=== PATIENT | female | born 1970 | race Caucasian/White ===

== ENCOUNTER → 2016-08-12 | Outpatient (CLI) | payer OTHER ==
--- NOTE | 2016-08-12 08:59 | MM ---
Reason for exam: clinical finding. Last mammogram was performed 11 months ago. History: Took hormonal contraceptives for 7 years beginning at age 16. Physical Findings: Nurse Summary: 0.5cm nodule in the left breast at 12:30 (nurse kristy). MG Diagnostic Mammo w CAD NAILA Bilateral CC and MLO view(s) were taken. Prior study comparison: September 05, 2015, bilateral MG screening mammo w CAD. November 28, 2012, mammogram, performed at [facility]. November 21, 2012, mammogram, performed at [facility]. The breast tissue is heterogeneously dense. This may lower the sensitivity of mammography. Previous mammotome biopsy in the right breast. There is no discrete abnormality. These results were verbally communicated with the patient and result sheet given to the patient on 08/12/16. ASSESSMENT: Benign, BI-RAD 2 RECOMMENDATION: Routine screening mammogram of both breasts in 1 year. Manage patient on a clinical basis with regard to left palpable.
--- NOTE | 2016-08-12 09:01 | USB ---
Reason for exam: clinical finding. History: Took hormonal contraceptives for 7 years beginning at age 16. US Breast LT Left breast ultrasound includes all four quadrants, the retroareolar region and axilla. Finding demonstrate a 0.26 x 0.27 x 0.35cm lesion too small to characterize at 4 o'clock and a 0.33 x 0.18 x 0.31cm lesion too small to characterize at 4 o'clock. These results were verbally communicated with the patient and result sheet given to the patient on 08/12/16. ASSESSMENT: Benign, BI-RAD 2 RECOMMENDATION: Routine screening mammogram of both breasts in 1 year. Manage patient on a clinical basis with regard to left palpable.
== END | disposition home or self-care (01) ==
LOC: RADMAMWWP 07:31
PROVIDERS: ATTEND Family Medicine
DX: N63 Unspecified lump in breast (principal)
CPT/HCPCS: 76641; G0204

== ENCOUNTER → 2017-03-07 | Outpatient (CLI) | payer OTHER ==
--- NOTE | 2017-03-07 07:52 | US ---
EXAMINATION TYPE: US gallbladder DATE OF EXAM: 03/07/2017 COMPARISON: NONE CLINICAL HISTORY: 46-year-old female with pain, K81.9 Cholecystitis. Technique: Multiple sonographic images of the right upper quadrant are obtained. FINDINGS: FACS TEACHER NOTES: Morbidly obese patient with extensive overlying bowel gas, limited exam. Liver Length: 14.6 cm Gallbladder Wall: 0.2 cm CBD: 0.3 cm Right Kidney: 9.0 x 3.9 x 4.2 cm Pancreas: Visualized pancreatic neck and portions of the pancreatic body show no gross abnormality. R emainder is suboptimally visualized due to shadowing from bowel gas. Liver: Appears hypoechoic. There is no classic starry salome appearance of hepatitis. Gallbladder: No abnormal gallbladder distention, wall thickening, pericholecystic fluid, or shadowing calculi. There is some possible sludge, due to morbid obesity difficult to determine for certain. Evidence for sonographic Lim's sign: No CBD: wnl Right Kidney: No hydronephrosis. IMPRESSION: 1. Technically limited examination due to large body habitus. 2. Possible gallbladder sludge. Otherwise, no cholelithiasis or ancillary findings of acute cholecyst itis. 3. Hypoechoic appearance to the liver may be on technical basis. Correlate to exclude hepatitis.
== END | disposition home or self-care (01) ==
LOC: RADUSWWP 06:49
PROVIDERS: ATTEND Family Medicine
DX: K81.9 Cholecystitis, unspecified (principal)
CPT/HCPCS: 76705

== ENCOUNTER 2017-04-07 11:02 | Day surgery (SDC) | payer OTHER ==
[2017-04-04 10:00] VITALS: BMI 45.0
[~2017-04-07 11:02] MED LIST: LACTATED RINGERS 1,000 ML IV SCH
[2017-04-07 11:22] VITALS: TEMP 97.9
[2017-04-07] MEDS ORDERED: PROPOFOL 10 MG/ML 20 ML VIAL IV ONE (11:51)
--- NOTE | 2017-04-07 12:14 | P.PCN ---
Date of Procedure: 04/07/17 Preoperative Diagnosis: abdominal pain Postoperative Diagnosis: mild gastritis and duodenitits Anesthesia: MAC Surgeon: Handy Hernandez Pathology: other (gastric antrum and GE junction) Condition: stable Disposition: PACU Indications for Procedure: Patient has been experiencing upper abdominal pain Description of Procedure: Endoscope was advanced from oropharynx to esophagus under direct visualization. Down esophagus and into first and second portion of duodenum. Mild gastritis and duodenitits were noted. Gastric antral biopsy taken. Scope was retroflexed and no hiatal hernia was noted. GE junction biopsy was taken. No other abdormalities seen. Scope was withdrawn, patient tolerated procedure well. No apparent complications.
[2017-04-07 12:33] VITALS: BP 129/85; PULSE 80; RESP 18
== END 2017-04-07 13:04 | disposition home or self-care (01) ==
LOC: ORWHC2ENDO 11:02
PROVIDERS: ATTEND Student in an Organized Health Care Education/Training Program
DX: K29.50 Unspecified chronic gastritis without bleeding (principal); K21.9 Gastro-esophageal reflux disease without esophagitis; K29.80 Duodenitis without bleeding; R19.4 Change in bowel habit; E66.9 Obesity, unspecified; Z68.41 Body mass index [BMI] 40.0-44.9, adult; Z79.899 Other long term (current) drug therapy; Z88.0 Allergy status to penicillin
CPT/HCPCS: 43239; 81025; 88305; 88342; J2704

== ENCOUNTER → 2018-06-16 | Outpatient (CLI) | payer OTHER ==
--- NOTE | 2018-06-16 14:36 | CT ---
EXAMINATION TYPE: CT brain wo con DATE OF EXAM: 06/16/2018 COMPARISON: None INDICATION: right sided headaches and pain above eye, vision changes, no injury DLP: 1054.2 mGycm, Automated exposure control for dose reduction was used. CONTRAST: None CT of the brain is performed utilizing 3 mm thick sections through the posterior fossa and 3 mm thick sections through the remaining calvarium. Study is performed within 24 hours of arrival to the hosp ital. No abnormal hyperdensity is present to suggest an acute intracranial hemorrhage. No mass lesion is evident. No acute infarcts are evident. Ventricles and sulci are appropriate for the patient age. Paranasal sinuses and mastoid air cells within the umuat-cc-itya are clear. IMPRESSIONS: 1. Normal CT Brain
[2018-06-16 14:53] LABS: Basophils # (A) 0.1 k/uL (0-0.2); Basophils % (A) 1 %; Eosinophils # (A) 0.4 k/uL (0-0.7); Eosinophils % (A) 4 %; HCT 43.7 % (34.0-46.0); HGB 13.8 gm/dL (11.4-16.0); Lymphocytes # (A) 2.5 k/uL (1.0-4.8); Lymphocytes % (A) 22 %; MCH 30.2 pg (25.0-35.0); MCHC 31.6 g/dL (31.0-37.0); MCV 95.7 fL (80.0-100.0); Mean Platelet Volume 6.6; Monocytes # (A) 0.5 k/uL (0-1.0); Monocytes % (A) 4 %; Neutrophils # (A) 7.5 k/uL (1.3-7.7); Neutrophils % (A) 68 %; Platelet Count 277 k/uL (150-450); RBC 4.57 m/uL (3.80-5.40); RDW 12.8 % (11.5-15.5); WBC 11.1 k/uL (3.8-10.6)
[2018-06-16 15:07] LABS: Albumin 3.7 g/dL (3.5-5.0); Calcium 9.2 mg/dL (8.4-10.2); Potassium 4.6 mmol/L (3.5-5.1); Total Bilirubin 0.3 mg/dL (0.2-1.3); Total Protein 6.6 g/dL (6.3-8.2)
== END | disposition home or self-care (01) ==
LOC: RADCTMAIN 14:01
PROVIDERS: ATTEND Nurse Practitioner Family
DX: G44.52 New daily persistent headache (NDPH) (principal); R11.0 Nausea; H53.9 Unspecified visual disturbance; Z88.0 Allergy status to penicillin
CPT/HCPCS: 36415; 70450; 80053; 84443; 85025

== ENCOUNTER → 2018-10-31 | Outpatient (CLI) | payer OTHER ==
--- NOTE | 2018-10-31 12:16 | FL ---
EXAMINATION TYPE: FL barium swallow w video DATE OF EXAM: 10/31/2018 MODIFIED SWALLOW / DEGLUTITION STUDY CLINICAL HISTORY: Dysphagia. TECHNIQUE: Deglutition study is performed utilizing thin liquid barium, honey and nectar thick liqui d barium, barium thick pudding, and barium coated cracker. A total of 55 seconds of fluoroscopic time is utilized during procedure. 0 spot images are saved to PACS. COMPARISON: None. FINDINGS: The oral and pharyngeal phases show satisfactory initiation and propagation with all modali ties tested. Normal mastication is seen with solid modalities tested. There is no evidence of penet ration or aspiration with any modality tested. No significant pharyngeal residue was appreciated. IMPRESSION: Normal deglutition study. Please refer to speech therapist notes for further details if necessary.
== END | disposition home or self-care (01) ==
LOC: RADFLMAIN 11:36
PROVIDERS: ATTEND Otolaryngology
DX: R13.10 Dysphagia, unspecified (principal)
CPT/HCPCS: 74230

== ENCOUNTER → 2018-11-08 | Outpatient (CLI) | payer OTHER | LOC: CPPFTMAIN 10:00 | PROVIDERS: ATTEND Family Medicine | DX: J30.9 Allergic rhinitis, unspecified (principal); R05 Cough; Z88.0 Allergy status to penicillin | CPT/HCPCS: 94060; 94726; 94729 ==

== ENCOUNTER → 2018-11-30 | Outpatient (CLI) | payer OTHER ==
--- NOTE | 2018-12-01 11:31 | MM ---
Reason for exam: screening (asymptomatic). Last mammogram was performed 2 years and 4 months ago. History: Took hormonal contraceptives for 7 years beginning at age 16. Physical Findings: A clinical breast exam by your physician is recommended on an annual basis and results should be correlated with mammographic findings. MG 3D Screening Mammo W/Cad Bilateral CC and MLO view(s) were taken. Prior study comparison: August 12, 2016, bilateral MG diagnostic mammo w CAD NAILA. September 05, 2015, bilateral MG screening mammo w CAD. The breast tissue is heterogeneously dense. This may lower the sensitivity of mammography. There is chronic nodularity in the right breast. There is no discrete abnormality. ASSESSMENT: Negative, BI-RAD 1 RECOMMENDATION: Routine screening mammogram of both breasts in 1 year.
== END | disposition home or self-care (01) ==
LOC: RADMAMWWP 07:15
PROVIDERS: ATTEND Family Medicine
DX: Z12.31 Encounter for screening mammogram for malignant neoplasm of breast (principal)
CPT/HCPCS: 77063; 77067

== ENCOUNTER 2019-09-27 16:22 | Observation (INO) | payer OTHER ==
[2019-09-27] MEDS ORDERED: SODIUM CHLORIDE 0.9% 500 ML 500 ML IV STA (16:56)
[2019-09-27 17:02] LABS: Appearance,Urine Cloudy (Clear); Bilirubin,Urine Negative (Negative); Blood,Urine Negative (Negative); Color,Urine Yellow; Glucose,Urine (UA) Negative (Negative); Ketones,Urine 1+ (Negative); Leukocyte Esterase,Urine Moderate (Negative); Mucus,Urine Rare /hpf; Nitrite,Urine Negative (Negative); Protein,Urine Negative (Negative); RBC,Urine 3 /hpf (0-5); Specific Gravity,Urine 1.019 (1.001-1.035); Squamous Epithelial Cell,Urine 7 /hpf (0-4); Urobilinogen,Urine <2.0 mg/dL (<2.0); WBC,Urine 2 /hpf (0-5)
[2019-09-27 17:22] LABS: Basophils # (A) 0.1 k/uL (0-0.2); Basophils % (A) 1 %; Eosinophils # (A) 0.4 k/uL (0-0.7); Eosinophils % (A) 4 %; HGB 14.1 gm/dL (11.4-16.0); Lymphocytes # (A) 2.4 k/uL (1.0-4.8); Lymphocytes % (A) 21 %; MCH 31.5 pg (25.0-35.0); MCHC 33.5 g/dL (31.0-37.0); Mean Platelet Volume 7.8; Monocytes # (A) 0.6 k/uL (0-1.0); Monocytes % (A) 5 %; Neutrophils % (A) 69 %; Platelet Count 290 k/uL (150-450); RBC 4.47 m/uL (3.80-5.40); RDW 12.7 % (11.5-15.5); WBC 11.7 k/uL (3.8-10.6)
[2019-09-27 17:30] LABS: ALT 14 U/L (4-34); AST 18 U/L (14-36); African American GFR (CKD) >90 (>60 ml/min/1.73 sqM); Alkaline Phosphatase 77 U/L (38-126); Anion Gap 6 mmol/L; Blood Urea Nitrogen 12 mg/dL (7-17); Calcium 9.1 mg/dL (8.4-10.2); Carbon Dioxide 25 mmol/L (22-30); Chloride 104 mmol/L (98-107); Glucose 94 mg/dL (74-99); Non-African American GFR(CKD) 82 (>60 ml/min/1.73 sqM); Potassium 4.2 mmol/L (3.5-5.1); Sodium 135 mmol/L (137-145); Total Bilirubin 0.5 mg/dL (0.2-1.3); Total Protein 7.3 g/dL (6.3-8.2)
[2019-09-27] MEDS ORDERED: metroNIDAZOLE-NS PMX 500 MG in SALINE 1 100ML.BAG IVPB STA (18:01)
--- NOTE | 2019-09-27 18:05 | CT ---
EXAMINATION TYPE: CT abdomen pelvis w con DATE OF EXAM: 09/27/2019 HISTORY: Right lower quadrant pain. CT DLP: 2723.5mGycm Automated Exposure Control for Dose Reduction was Utilized. CONTRAST: CT scan of the abdomen and pelvis is performed with IV Contrast, patient injected with 100 mL of Isov ue 300. COMPARISON: None. FINDINGS: LUNG BASES: No significant abnormality is appreciated. LIVER/GB: Hepatic parenchyma is diffusely hypoattenuated in comparison to that of the spleen, most co mmonly seen in hepatic steatosis. This finding limits evaluation for hepatic masses. No gross evidenc e of hepatic mass is seen. No intrahepatic biliary ductal dilatation. Gallbladder is surgically absen t. PANCREAS: No significant abnormality is seen. SPLEEN: No significant abnormality is seen. Small splenule noted. ADRENALS: No nodule or thickening. KIDNEYS: Kidneys enhance and excrete symmetrically without hydronephrosis. Incidentally noted retroao rtic left renal vein. BOWEL: There is a small hiatal hernia. The appendix is enlarged measuring 9 mm on axial image 64. The re is mild surrounding inflammatory fat stranding. No dilated large or small bowel. UTERUS/ADNEXA: Tubal ligation clips are noted. LYMPH NODES: No greater than 1cm abdominal or pelvic lymph nodes are appreciated. OSSEOUS STRUCTURES: Minimal multilevel degenerative change of the spine. IMPRESSION: Acute uncomplicated appendicitis. Findings relayed to the ordering ER provider by Dr. Bita garcia on 09/27/2019 at 1801.
[2019-09-27] MEDS ORDERED: ONDANSETRON 4 MG/2 ML VIAL IVP PRN (19:11)
[2019-09-27] MEDS ORDERED: MORPHINE SULFATE 4 MG/ML SYRINGE IV PRN (19:11)
[2019-09-27] MEDS ORDERED: ACETAMINOPHEN TAB 325 MG TAB PO PRN (19:11)
[2019-09-27] MEDS ORDERED: NALOXONE 0.4 MG/ML 1 ML VIAL IV PRN (19:11)
--- NOTE | 2019-09-27 19:13 | ED ---
General Adult HPI - General Chief complaint: Abdominal Pain Stated complaint: Abd Pain Time Seen by Provider: 09/27/19 16:35 Source: patient, RN notes reviewed, old records reviewed Mode of arrival: ambulatory Limitations: no limitations - History of Present Illness Initial comments: 49-year-old female patient past history tubal ligation, cholecystectomy a pproximately 2 years ago presents ED for chief complaint right lower quadrant abdominal pain. Patient reports the pain began yesterday got worse today. Patient is poor that she had some bloating approximately a week ago. Denies any other complaints at this time. Systemic: Pt denies fatigue, fever/chills, rash. Pt denies weakness, night sweats, weight loss. Neuro: Pt denies headache, visual disturbances, syncope or pre-syncope. HEENT: Pt denies ocular discharge or irritation, otalgia, rhinorrhea, pharyngitis or notable lymphadenopathy. Cardiopulmonary: Pt denies chest pain, SOB, heart palpitations, dyspnea on exertion. Abdominal/GI: Pt denies n/v/d. : Pt denies dysuria, burning w/ urination, frequency/urgency. Denies new onset urinary or bowel incontinence. MSK: Pt denies myalgia, loss of strength or function in extremities. Neuro: Pt denies new onset weakness, paresthesias. - Related Data Home Medications Medication Instructions Recorded Confirmed Omeprazole [PriLOSEC] 20 mg PO AC-BRKFST 04/04/17 04/07/17 Allergies Allergy/AdvReac Type Severity Reaction Status Date / Time Penicillins Allergy Unknown Verified 09/27/19 16:27 Childhood Review of Systems ROS Statement: Those systems with pertinent positive or pertinent negative responses have been documented in the HPI. ROS Other: All systems not noted in ROS Statement are negative. Past Medical History Past Medical History: GERD/Reflux History of Any Multi-Drug Resistant Organisms: None Reported Past Surgical History: Tubal Ligation, Uterine Ablation Additional Past Surgical History / Comment(s): D & C Past Anesthesia/Blood Transfusion Reactions: No Reported Reaction Past Psychological History: No Psychological Hx Reported Smoking Status: Former smoker - Past Family History Mother Family Medical History: No Reported History General Exam - General Exam Comments Initial Comments: Constitutional: NAD, AOX3, Pt has pleasant affect. HEENT: NC/AT, trachea midline, neck supple, no lymphadenopathy. Posterior pharynx non erythematous, without exudates. External ears appear normal, without discharge. Mucous membranes moist. Eyes PERRLA, EOM intact. There is no scleral icterus. No pallor noted. Cardiopulmonary: RRR, no murmurs, rubs or gallops, no JVD noted. Lungs CTAB in anterior and posterior adkins. No peripheral edema. Abdominal exam: Abdomen soft and non-distended. Abdomen is tender to palpation right lower quadrant region at McBurney's point. No guarding or rigidity is noted. Neuro: CN II-XII grossly intact. No nuchal rigidity. No raccon eyes, no lay sign, no hemotympanum. No cervical spinal tenderness. MSK: No posterior calf tenderness bilaterally, homans sign negative bilaterally. Posterior tibialis and radial pulse +2 bilaterally. Sensation intact in upper and lower extremities. Full active ROM in upper and lower extremities, 5/5 stregnth. Limitations: no limitations Course Vital Signs 09/27/19 16:23 Temperature 98.2 F Pulse Rate 82 Respiratory 18 Rate Blood Pressure 162/75 O2 Sat by Pulse 98 Oximetry Medical Decision Making - Medical Decision Making 41-year-old female patient presents to ED for chief complaint of abdominal pain. Patient vital signs are stable, afebrile. Physical exam displayed right lower quadrant tenderness. Laboratory investigations revealed a leukocytosis of 11. CT abdomen and pelvis displayed , acute appendicitis. Due to penicillin ALLERGY patient initiated on Rocephin and Flagyl. Dr. Hunter accepts case. Case discussed with Dr. Flood. - Lab Data Result diagrams: 09/27/19 17:08 09/27/19 17:08 Lab Results 09/27/19 09/27/19 09/27/19 Range/Units 16:55 17:08 17:08 WBC 11.7 H (3.8-10.6) k/uL RBC 4.47 (3.80-5.40) m/uL Hgb 14.1 (11.4-16.0) gm/dL Hct 42.0 (34.0-46.0) % MCV 94.0 (80.0-100.0) fL MCH 31.5 (25.0-35.0) pg MCHC 33.5 (31.0-37.0) g/dL RDW 12.7 (11.5-15.5) % Plt Count 290 (150-450) k/uL Neutrophils % 69 % Lymphocytes % 21 % Monocytes % 5 % Eosinophils % 4 % Basophils % 1 % Neutrophils # 8.0 H (1.3-7.7) k/uL Lymphocytes # 2.4 (1.0-4.8) k/uL Monocytes # 0.6 (0-1.0) k/uL Eosinophils # 0.4 (0-0.7) k/uL Basophils # 0.1 (0-0.2) k/uL Sodium 135 L (137-145) mmol/L Potassium 4.2 (3.5-5.1) mmol/L Chloride 104 (98-107) mmol/L Carbon Dioxide 25 (22-30) mmol/L Anion Gap 6 mmol/L BUN 12 (7-17) mg/dL Creatinine 0.84 (0.52-1.04) mg/dL Est GFR (CKD-EPI)AfAm >90 (>60 ml/min/1.73 sqM) Est GFR (CKD-EPI)NonAf 82 (>60 ml/min/1.73 sqM) Glucose 94 (74-99) mg/dL Plasma Lactic Acid Maycol (0.7-2.0) mmol/L Calcium 9.1 (8.4-10.2) mg/dL Total Bilirubin 0.5 (0.2-1.3) mg/dL AST 18 (14-36) U/L ALT 14 (4-34) U/L Alkaline Phosphatase 77 (38-126) U/L Total Protein 7.3 (6.3-8.2) g/dL Albumin 4.0 (3.5-5.0) g/dL Lipase 59 (23-300) U/L Urine Color Yellow Urine Appearance Cloudy H (Clear) Urine pH 6.0 (5.0-8.0) Ur Specific [place] 1.019 (1.001-1.035) Urine Protein Negative (Negative) Urine Glucose (UA) Negative (Negative) Urine Ketones 1+ H (Negative) Urine Blood Negative (Negative) Urine Nitrite Negative (Negative) Urine Bilirubin Negative (Negative) Urine Urobilinogen <2.0 (<2.0) mg/dL Ur Leukocyte Esterase Moderate H (Negative) Urine RBC 3 (0-5) /hpf Urine WBC 2 (0-5) /hpf Ur Squamous Epith Cells 7 H (0-4) /hpf Urine Mucus Rare H (None) /hpf 09/27/19 Range/Units 17:08 WBC (3.8-10.6) k/uL RBC (3.80-5.40) m/uL Hgb (11.4-16.0) gm/dL Hct (34.0-46.0) % MCV (80.0-100.0) fL MCH (25.0-35.0) pg MCHC (31.0-37.0) g/dL RDW (11.5-15.5) % Plt Count (150-450) k/uL Neutrophils % % Lymphocytes % % Monocytes % % Eosinophils % % Basophils % % Neutrophils # (1.3-7.7) k/uL Lymphocytes # (1.0-4.8) k/uL Monocytes # (0-1.0) k/uL Eosinophils # (0-0.7) k/uL Basophils # (0-0.2) k/uL Sodium (137-145) mmol/L Potassium (3.5-5.1) mmol/L Chloride (98-107) mmol/L Carbon Dioxide (22-30) mmol/L Anion Gap mmol/L BUN (7-17) mg/dL Creatinine (0.52-1.04) mg/dL Est GFR (CKD-EPI)AfAm (>60 ml/min/1.73 sqM) Est GFR (CKD-EPI)NonAf (>60 ml/min/1.73 sqM) Glucose (74-99) mg/dL Plasma Lactic Acid [place] 0.8 (0.7-2.0) mmol/L Calcium (8.4-10.2) mg/dL Total Bilirubin (0.2-1.3) mg/dL AST (14-36) U/L ALT (4-34) U/L Alkaline Phosphatase (38-126) U/L Total Protein (6.3-8.2) g/dL Albumin (3.5-5.0) g/dL Lipase (23-300) U/L Urine Color Urine Appearance (Clear) Urine pH (5.0-8.0) Ur Specific [place] (1.001-1.035) Urine Protein (Negative) Urine Glucose (UA) (Negative) Urine Ketones (Negative) Urine Blood (Negative) Urine Nitrite (Negative) Urine Bilirubin (Negative) Urine Urobilinogen (<2.0) mg/dL Ur Leukocyte Esterase (Negative) Urine RBC (0-5) /hpf Urine WBC (0-5) /hpf Ur Squamous Epith Cells (0-4) /hpf Urine Mucus (None) /hpf Disposition Clinical Impression: Acute appendicitis, uncomplicated Disposition: ADMITTED IP TO THIS [facility] Condition: Serious Is patient prescribed a controlled substance at d/c from ED?: No Referrals: Maurilio Stover MD [Primary Care Provider] - 1-2 days
[2019-09-27] MEDS: SODIUM CHLORIDE 0.9% 1,000 ML IV SCH ×2 (19:31→23:20)
[2019-09-27] MEDS ORDERED: BUPIVACAIN-EPI 0.25%-1:200,000 30 ML VIAL SQ ONE ×3 (20:49→21:06)
--- NOTE | 2019-09-27 20:51 | P.GSHP ---
History of Present Illness H&P Date: 09/27/19 49-year-old female presents to the hospital complaining of pain right lower quadrant. This began yesterday. No fevers. No shortness of breath. Mild symptoms possibly a week ago. White blood cell count slightly elevated. CAT scan performed showing mild inflammatory changes around a distended appendix. History of previous tubal ligation and uterine ablation. No shortness of breath or chest pain. No cough. Denies rectal bleeding or melena. Denies nausea or vomiting. - Review of Systems Comment: The patient denies any acute changes in vision or hearing, no dysphagia or odynophagia, no chest pain or shortness of breath, no dysuria or hematuria, no headache, no runny nose, no rectal bleeding or melena, no unexplained weight loss Past Medical History Past Medical History: GERD/Reflux History of Any Multi-Drug Resistant Organisms: None Reported Past Surgical History: Tubal Ligation, Uterine Ablation Additional Past Surgical History / Comment(s): D & C Past Anesthesia/Blood Transfusion Reactions: No Reported Reaction Past Psychological History: No Psychological Hx Reported Smoking Status: Former smoker - Past Family History Mother Family Medical History: No Reported History Medications and Allergies Home Medications Medication Instructions Recorded Confirmed Type Omeprazole [PriLOSEC] 20 mg PO DAILY PRN 04/04/17 09/27/19 History Allergies Allergy/AdvReac Type Severity Reaction Status Date / Time Penicillins Allergy Unknown Verified 09/27/19 19:55 Childhood Surgical - Exam Vital Signs Temp Pulse Resp BP Pulse Ox 98.2 F 82 18 162/75 98 09/27/19 16:23 09/27/19 16:23 09/27/19 16:23 09/27/19 16:23 09/27/19 16:23 Physical exam: General: Well-developed, well-nourished HEENT: Normocephalic, sclerae nonicteric Abdomen: Right lower quadrant tenderness, nondistended Extremities: No edema Neuro: Alert and oriented Results - Labs 09/27/19 17:08 09/27/19 17:08 Abnormal Lab Results - Last 24 Hours (Table) 09/27/19 09/27/19 09/27/19 Range/Units 16:55 17:08 17:08 WBC 11.7 H (3.8-10.6) k/uL Neutrophils # 8.0 H (1.3-7.7) k/uL Sodium 135 L (137-145) mmol/L Urine Appearance Cloudy H (Clear) Urine Ketones 1+ H (Negative) Ur Leukocyte Esterase Moderate H (Negative) Ur Squamous Epith Cells 7 H (0-4) /hpf Urine Mucus Rare H (None) /hpf Diabetes panel 09/27/19 Range/Units 17:08 Sodium 135 L (137-145) mmol/L Potassium 4.2 (3.5-5.1) mmol/L Chloride 104 (98-107) mmol/L Carbon Dioxide 25 (22-30) mmol/L BUN 12 (7-17) mg/dL Creatinine 0.84 (0.52-1.04) mg/dL Glucose 94 (74-99) mg/dL Calcium 9.1 (8.4-10.2) mg/dL AST 18 (14-36) U/L ALT 14 (4-34) U/L Alkaline Phosphatase 77 (38-126) U/L Total Protein 7.3 (6.3-8.2) g/dL Albumin 4.0 (3.5-5.0) g/dL Calcium panel 09/27/19 Range/Units 17:08 Calcium 9.1 (8.4-10.2) mg/dL Albumin 4.0 (3.5-5.0) g/dL Pituitary panel 09/27/19 Range/Units 17:08 Sodium 135 L (137-145) mmol/L Potassium 4.2 (3.5-5.1) mmol/L Chloride 104 (98-107) mmol/L Carbon Dioxide 25 (22-30) mmol/L BUN 12 (7-17) mg/dL Creatinine 0.84 (0.52-1.04) mg/dL Glucose 94 (74-99) mg/dL Calcium 9.1 (8.4-10.2) mg/dL Adrenal panel 09/27/19 Range/Units 17:08 Sodium 135 L (137-145) mmol/L Potassium 4.2 (3.5-5.1) mmol/L Chloride 104 (98-107) mmol/L Carbon Dioxide 25 (22-30) mmol/L BUN 12 (7-17) mg/dL Creatinine 0.84 (0.52-1.04) mg/dL Glucose 94 (74-99) mg/dL Calcium 9.1 (8.4-10.2) mg/dL Total Bilirubin 0.5 (0.2-1.3) mg/dL AST 18 (14-36) U/L ALT 14 (4-34) U/L Alkaline Phosphatase 77 (38-126) U/L Total Protein 7.3 (6.3-8.2) g/dL Albumin 4.0 (3.5-5.0) g/dL Assessment and Plan (1) Acute appendicitis, uncomplicated Narrative/Plan: Clinical scenario discussed with the patient. CAT scan findings suggest acute appendicitis which is consistent with her history and exam. We'll proceed with laparoscopic, possible open appendectomy at this time. Risks of bleeding, infection, conversion to an open procedure, abscess, hernia, bladder bowel and ureteral injury, additional findings at the time of surgery were reviewed. She understands and wishes to proceed. Current Visit: Yes Status: Acute Code(s): K35.80 - UNSPECIFIED ACUTE APPENDICITIS SNOMED Code(s): 72264340
[2019-09-27] MEDS ORDERED: PROPOFOL 10 MG/ML 20 ML VIAL IV ONE (21:06)
[2019-09-27] MEDS ORDERED: ROCURONIUM BROMIDE 10 MG/ML 5 ML VIAL IV ONE (21:06)
[2019-09-27] MEDS ORDERED: fentaNYL (PF) 50 MCG/ML 2 ML AMP ONE (21:06)
[2019-09-27] MEDS ORDERED: MIDAZOLAM 2 MG/2 ML VIAL ONE (21:06)
[2019-09-27] MEDS ORDERED: diphenhydrAMINE 50 MG/ML 1 ML VIAL ONE (21:06)
[2019-09-27] MEDS ORDERED: HEPARIN SODIUM,PORCINE 5,000 UNIT/ML 1 ML VIAL ONE (21:06)
[2019-09-27] MEDS ORDERED: LIDOCAINE 1% INJ 10MG/ML (20 ML MDV) ONE (21:06)
[2019-09-27] MEDS ORDERED: SUCCINYLCHOLINE CHLORIDE VIAL 200 MG/10 ML VIAL IV ONE (21:06)
[2019-09-27] MEDS ORDERED: IV FLUID CONTINUATION 900 ML IV ONE (21:06)
[2019-09-27] MEDS ORDERED: ACETAMINOPHEN IV (For NPO) 1,000 MG in EMPTY BAG 1 BAG IVPB ONE (21:44)
[2019-09-27] MEDS ORDERED: HYDROmorphone 0.5 MG/0.5 ML SYRINGE IVP PRN (21:44)
[2019-09-27] MEDS ORDERED: HYDROcodone/APAP 5-325MG 1 EACH TAB PO PRN (21:44)
--- NOTE | 2019-09-27 21:48 | P.OP ---
Date of Procedure: 09/27/19 Procedure(s) Performed: PREOPERATIVE DIAGNOSIS: Acute appendicitis POSTOPERATIVE DIAGNOSIS: Same PROCEDURE: Laparoscopic appendectomy SURGEON: Ava EBL: 5 mL ANESTHESIA: General COMPLICATIONS: None OPERATIVE PROCEDURE: The patient was brought and placed on the operating table in the supine position. The patient was placed under general anesthesia. The abdomen was prepped and draped in the usual sterile fashion. A small vertical infraumbilical incision was made. The fascia was retracted anteriorly with Mariluz forceps. The Veress needle was advanced into the peritoneal cavity. The saline drop test was normal. Insufflation took place to 15 mmHg. A 5 mm trocar was then placed. An additional 5 mm suprapubic trocar was placed under direct visualization as well as a 12 mm left lower quadrant trocar under direct visualization. The appendix was inspected. It was acutely inflamed. The mesoappendix was dissected. The base of the appendix was divided using a linear 45 mm intestinal stapler. The mesentery itself was divided using the LigaSure device. The area was then irrigated. No further purulence or bleeding was seen. The appendix was brought out of the peritoneal cavity through the left lower quadrant trocar site oozing an Endo Catch bag. The fascia at the 12 mm site was closed using a Joe-Jimbo 0 Vicryl stitch. The skin at all 3 sites was closed using 4-0 Monocryl sutures. Skin glue was then applied. DISPOSITION: Stable to recovery room
[2019-09-27] MEDS ORDERED: ONDANSETRON 4 MG/2 ML VIAL IVP ONE ×2 (21:55→22:16)
[2019-09-27] MEDS ORDERED: KETOROLAC 30 MG/ML 1 ML VIAL IVP ONE ×2 (21:58→22:08)
[2019-09-27] MEDS ORDERED: HYDROmorphone 1 MG/ML 1 ML SYRINGE IVP ONE ×3 (21:58→22:15)
[2019-09-27] MEDS ORDERED: HYDROmorphone 0.5 MG/0.5 ML SYRINGE IVP ONE (22:15)
[2019-09-27] MEDS ORDERED: SODIUM CHLORIDE 0.9% 500 ML 500 ML IV ONE (22:25)
[2019-09-27] MEDS ORDERED: SODIUM CHLORIDE 0.9% 1,000 ML IV ONE (22:25)
[2019-09-27] MEDS: HEPARIN SODIUM,PORCINE 5,000 UNIT/ML 1 ML VIAL SQ SCH (23:27)
[2019-09-28] MEDS ORDERED: metroNIDAZOLE-NS PMX 500 MG in SALINE 1 100ML.BAG IVPB SCH
[2019-09-28] MEDS: metroNIDAZOLE-NS PMX 500 MG in SALINE 1 100ML.BAG IVPB SCH ×2 (04:01→11:45)
[2019-09-28 06:40] VITALS: PULSE 98
[2019-09-28] MEDS ORDERED: PANTOPRAZOLE 40 MG TABLET PO PRN (08:44)
[2019-09-28] MEDS ORDERED: DOCUSATE 100 MG CAP PO SCH (09:00)
[2019-09-28] MEDS ORDERED: FAMOTIDINE 20 MG/2 ML VIAL IV SCH (09:00)
[2019-09-28] MEDS: HEPARIN SODIUM,PORCINE 5,000 UNIT/ML 1 ML VIAL SQ SCH (09:06)
[2019-09-28 09:28] VITALS: BP 106/69; RESP 18; TEMP 98
--- NOTE | 2019-09-28 11:39 | P.DS ---
Providers Date of admission: 09/27/19 20:38 Expected date of discharge: 09/28/19 Attending physician: Linus Escalante Consults: 09/27/19 21:44 Consult Physician Routine Consulting Provider: Maurilio Stover Consult Reason/Comments: Medical management Do you want consulting provider notified?: Yes Primary care physician: Maurilio Stover - Discharge Diagnosis(es) (1) Acute appendicitis, uncomplicated Patient admitted yesterday through the ER with acute appendicitis. Underwent uneventful laparoscopic appendectomy. Today is doing well. No pain currently. No fevers. She would like to go home. No nausea vomiting. Incisions are doing nicely. Will discharge. Follow-up one week via video or phone. Current Visit: Yes Status: Acute Patient Condition at Discharge: Serious Plan - Discharge Summary Discharge Rx Participant: Yes New Discharge Prescriptions: No Action Omeprazole [PriLOSEC] 20 mg PO DAILY PRN PRN Reason: Gi Upset Discharge Medication List Omeprazole [PriLOSEC] 20 mg PO DAILY PRN 04/04/17 [History] Follow up Appointment(s)/Referral(s): Linus Escalante MD [Medical Doctor] - 1 Week Maurilio Stover MD [Primary Care Provider] - 1 Week
--- NOTE | 2019-09-28 14:24 | P.CONS ---
History of Present Illness - Reason for Consult Consult date: 09/28/19 Medical management, gastroesophageal reflux disease Requesting physician: Linus Escalante - Chief Complaint Right lower quadrant abdominal pain - History of Present Illness This is a 49-year-old female, with history of gastroesophageal reflux disease, former nicotine dependence, presented to the ER with acute uncomplicated appendicitis, status post acute laparoscopic appendectomy, postop day #1. Afebrile, coronavirus not detected. Denies pain. Tolerating clear liquid diet with no nausea vomiting or diarrhea. Passing flatus. Ambulating in room, tolerating exertion well with no lightheadedness, dizziness or focal deficits. Denies chest pain, palpitations. Denies shortness of breath. Afebrile, vital signs stated Review of Systems ROS Statement: Those systems with pertinent positive or pertinent negative responses have been documented in the HPI. ROS Other: All systems not noted in ROS Statement are negative. Past Medical History Past Medical History: GERD/Reflux History of Any Multi-Drug Resistant Organisms: None Reported Past Surgical History: Cholecystectomy, Tubal Ligation, Uterine Ablation Additional Past Surgical History / Comment(s): D & C Past Anesthesia/Blood Transfusion Reactions: No Reported Reaction Past Psychological History: No Psychological Hx Reported Smoking Status: Former smoker Past Alcohol Use History: Occasional Additional Past Alcohol Use History / Comment(s): QUIT SMOKING 2014 Past Drug Use History: None Reported - Past Family History Mother Family Medical History: No Reported History Medications and Allergies Home Medications Medication Instructions Recorded Confirmed Type Omeprazole [PriLOSEC] 20 mg PO DAILY PRN 04/04/17 09/28/19 History Allergies Allergy/AdvReac Type Severity Reaction Status Date / Time Penicillins Allergy Unknown Verified 09/28/19 00:19 Childhood Physical Exam Vitals: Vital Signs Temp Pulse Pulse Pulse Resp BP BP 09/28/19 09:26 98 F 98 18 106/69 09/28/19 08:00 98 18 09/28/19 06:00 97.9 F 98 16 112/79 09/28/19 01:40 97.8 F 88 18 121/83 09/28/19 00:45 74 110/65 09/28/19 00:15 71 116/73 09/28/19 00:00 81 18 09/27/19 23:45 70 107/74 09/27/19 23:30 71 18 120/77 09/27/19 23:06 98 F 81 18 130/84 09/27/19 23:05 72 113/70 09/27/19 22:50 98 F 80 18 130/84 09/27/19 22:20 80 18 135/78 09/27/19 22:05 80 16 136/77 09/27/19 21:50 98 F 81 16 138/71 09/27/19 19:46 79 18 123/79 09/27/19 16:23 98.2 F 82 18 162/75 Pulse Ox 09/28/19 09:26 97 09/28/19 08:00 09/28/19 06:00 95 09/28/19 01:40 94 L 09/28/19 00:45 95 09/28/19 00:15 97 09/28/19 00:00 09/27/19 23:45 94 L 09/27/19 23:30 97 09/27/19 23:06 97 09/27/19 23:05 96 09/27/19 22:50 98 09/27/19 22:20 99 09/27/19 22:05 98 09/27/19 21:50 98 09/27/19 19:46 98 09/27/19 16:23 98 Intake and Output 09/27/19 09/28/19 09/28/19 22:59 06:59 14:59 Intake Total 1000 Output Total 5 Balance 995 Intake: IV 900 Oral 100 Output: Estimated Blood Loss 5 Other: Voiding Method Toilet # Voids 2 1 Weight 124.738 kg 124.965 kg PHYSICAL EXAM: VITAL SIGNS: [As above] GENERAL: Sitting up in bed, no acute distress HEENT: Conjunctivae normal. eyes normal. NECK: No JVD. No thyroid enlargement. No LNs CARDIOVASCULAR: S1, S2 regular. No murmur RESPIRATION: Breath sounds diminished in the bases. No rhonchi or crackles. No bronchial breathing. ABDOMEN: Soft, status post surgery, left lower quadrant surgical site well approximated clean dry and intact ,No guarding. Bowel sounds heard. LEGS: No edema. no swelling PSYCHIATRY: Alert and oriented X3, mood and affect normal. NERVOUS SYSTEM: Cranial N 2-12 grossly normal. Moves all 4 limbs. No focal deficits. Strength and sensation grossly intact.. Skin: no rash Lymphatic system. No LN neck axilla. Results CBC & Chem 7: 09/27/19 17:08 09/27/19 17:08 Labs: Abnormal Lab Results - Last 24 Hours (Table) 09/27/19 09/27/19 09/27/19 Range/Units 16:55 17:08 17:08 WBC 11.7 H (3.8-10.6) k/uL Neutrophils # 8.0 H (1.3-7.7) k/uL Sodium 135 L (137-145) mmol/L Urine Appearance Cloudy H (Clear) Urine Ketones 1+ H (Negative) Ur Leukocyte Esterase Moderate H (Negative) Ur Squamous Epith Cells 7 H (0-4) /hpf Urine Mucus Rare H (None) /hpf Assessment and Plan Assessment: Acute uncomplicated appendicitis, status post laparoscopic appendectomy Gastroesophageal reflux disease Former nicotine dependence Obesity, morbid, BMI 45.8 Plan: Continue on current medication regime ,monitoring and symptomatic treatment. Aggressive pulmonary toileting with incentive spirometer reinforced. Increase ambulation as tolerated. Discharge planning in progress as per vianey hale. Follow-up with PCP in [address] Escalante for the consult. The impression and plan of care has been dictated as directed. DrTiffanie: I performed a history and examination of this patient, discussed the same with the dictator. I agree with the dictator's note ,documented as a scribe. Any additional findings or plans will be noted.
== END 2019-09-28 13:57 ==
LOC: EC 16:22 → 6PED 20:38
PROVIDERS: ADMIT Surgery; ATTEND Surgery
DX: K35.80 Unspecified acute appendicitis (principal); K21.9 Gastro-esophageal reflux disease without esophagitis; Z98.51 Tubal ligation status; Z98.890 Other specified postprocedural states; Z87.891 Personal history of nicotine dependence; Z11.59 Encounter for screening for other viral diseases; E66.01 Morbid (severe) obesity due to excess calories; Z68.42 Body mass index [BMI] 45.0-49.9, adult; Z79.899 Other long term (current) drug therapy; Z88.0 Allergy status to penicillin
CPT/HCPCS: 99285; 36415; 88304; 80053; 83605; 83690; 85025; 81001; 87040; 87635; 74177; 44970; G0378 ×2; J2250; J0330; J1200; J1644 ×2; J2405; J2001; J0696 ×2; J3010; J1885; J1170 ×2; J0131; J2704; Q9967

== ENCOUNTER 2020-03-23 19:08 | Observation (INO) | payer OTHER ==
[2020-03-23] MEDS ORDERED: ADENOSINE 3 MG/ML 2 ML VIAL IVP STA (19:23)
[2020-03-23] MEDS ORDERED: SODIUM CHLORIDE 0.9% 500 ML 500 ML IV ONE (19:24)
[2020-03-23 19:37] LABS: Basophils # (A) 0.1 k/uL (0-0.2); Basophils % (A) 1 %; Eosinophils # (A) 0.5 k/uL (0-0.7); Eosinophils % (A) 4 %; HCT 44.4 % (34.0-46.0); HGB 14.5 gm/dL (11.4-16.0); Lymphocytes % (A) 31 %; MCH 31.2 pg (25.0-35.0); MCHC 32.7 g/dL (31.0-37.0); MCV 95.4 fL (80.0-100.0); Mean Platelet Volume 7.4; Monocytes # (A) 0.7 k/uL (0-1.0); Monocytes % (A) 5 %; Neutrophils # (A) 7.5 k/uL (1.3-7.7); Neutrophils % (A) 57 %; Platelet Count 267 k/uL (150-450); RBC 4.65 m/uL (3.80-5.40); RDW 12.6 % (11.5-15.5)
[2020-03-23] MEDS ORDERED: ASPIRIN 325 MG TAB PO STA (19:42)
--- NOTE | 2020-03-23 19:44 | ED ---
General Adult HPI - General Chief complaint: Chest Pain Stated complaint: chest pain Time Seen by Provider: 03/23/20 19:16 Source: patient, RN notes reviewed, old records reviewed Mode of arrival: wheelchair Limitations: no limitations - History of Present Illness Initial comments: 49-year-old female no history of CAD presenting for evaluation of chest pain and jaw pain. Symptoms began approximately one hour prior to arrival. Patient also felt quite dizzy. She was at rest when her symptoms began. She has no known history of coronary artery disease, no history diabetes. - Related Data Home Medications Medication Instructions Recorded Confirmed Omeprazole [PriLOSEC] 20 mg PO DAILY PRN 04/04/17 09/28/19 Allergies Allergy/AdvReac Type Severity Reaction Status Date / Time Penicillins Allergy Unknown Verified 03/23/20 19:13 Childhood Review of Systems ROS Statement: Those systems with pertinent positive or pertinent negative responses have been documented in the HPI. ROS Other: All systems not noted in ROS Statement are negative. Past Medical History Past Medical History: GERD/Reflux History of Any Multi-Drug Resistant Organisms: None Reported Past Surgical History: Appendectomy, Cholecystectomy, Tubal Ligation, Uterine Ablation Additional Past Surgical History / Comment(s): D & C, Past Anesthesia/Blood Transfusion Reactions: No Reported Reaction Past Psychological History: No Psychological Hx Reported Smoking Status: Former smoker Past Alcohol Use History: Occasional Past Drug Use History: None Reported - Past Family History Mother Family Medical History: No Reported History General Exam Limitations: no limitations General appearance: alert, in distress Head exam: Present: atraumatic, normocephalic Eye exam: Present: normal appearance, PERRL ENT exam: Present: mucous membranes dry Neck exam: Present: normal inspection. Absent: tenderness, meningismus Respiratory exam: Present: normal lung sounds bilaterally. Absent: respiratory distress, wheezes Cardiovascular Exam: Present: normal rhythm, tachycardia GI/Abdominal exam: Present: soft. Absent: distended, tenderness, guarding, rebound, rigid Extremities exam: Present: pedal edema Neurological exam: Present: alert, oriented X3, CN II-XII intact. Absent: motor sensory deficit Psychiatric exam: Present: normal affect, normal mood Skin exam: Present: warm, dry, intact, diaphoretic. Absent: cyanosis Course Vital Signs 03/23/20 03/23/20 03/23/20 19:10 19:27 19:31 Temperature 98.7 F Pulse Rate 154 H 161 H 184 H Pulse Rate [ Internet Specialist ] Respiratory 20 18 Rate Blood Pressure 138/110 139/114 O2 Sat by Pulse 99 98 Oximetry 03/23/20 03/23/20 03/23/20 19:33 19:35 19:38 Temperature Pulse Rate 133 H 112 H Pulse Rate [ 112 H Internet Specialist ] Respiratory 18 18 Rate Blood Pressure 140/93 O2 Sat by Pulse 98 100 Oximetry 03/23/20 03/23/20 19:50 20:10 Temperature Pulse Rate 105 H 104 H Pulse Rate [ Internet Specialist ] Respiratory 16 16 Rate Blood Pressure 144/89 157/94 O2 Sat by Pulse 100 98 Oximetry EKG Findings - EKG Comments: EKG Findings:: EKG: SVT low voltage, rate of 163, QRS duration 66, QTC 444, T- wave inversion in V3. No ST segment elevation. Repeat EKG after adenosine, sinus tachycardia, low voltage, rate of 113, AL interval 150, QRS duration 68, QTC 408, persistent T-wave inversion in V3, no ST segment elevation. Medical Decision Making - Medical Decision Making 49-year-old female presenting with anterior chest pain radiating to the jaw, pain is typical in nature, she is found to be in SVT with T-wave inversion in the precordial leads. Patient is converted with 6 mg of adenosine to sinus rhythm. She has persistent T-wave inversion in V2. Chest pain resolves when she is in sinus rhythm. He BC, CMP are unremarkable. She has a negative initial troponin. Given the typical chest pain she is placed on heparin, she will be admitted for telemetry, cardiology consultation, serial enzymes. Case discussed with Dr. Stover who will admit. - Lab Data Result diagrams: 03/23/20 19:30 03/23/20 19:30 Lab Results 03/23/20 03/23/20 03/23/20 Range/Units 19:30 19:30 19:30 WBC 13.0 H (3.8-10.6) k/uL RBC 4.65 (3.80-5.40) m/uL Hgb 14.5 (11.4-16.0) gm/dL Hct 44.4 (34.0-46.0) % MCV 95.4 (80.0-100.0) fL MCH 31.2 (25.0-35.0) pg MCHC 32.7 (31.0-37.0) g/dL RDW 12.6 (11.5-15.5) % Plt Count 267 (150-450) k/uL Neutrophils % 57 % Lymphocytes % 31 % Monocytes % 5 % Eosinophils % 4 % Basophils % 1 % Neutrophils # 7.5 (1.3-7.7) k/uL Lymphocytes # 4.0 (1.0-4.8) k/uL Monocytes # 0.7 (0-1.0) k/uL Eosinophils # 0.5 (0-0.7) k/uL Basophils # 0.1 (0-0.2) k/uL PT 9.4 (9.0-12.0) sec INR 0.9 (<1.2) APTT 24.2 (22.0-30.0) sec Sodium 136 L (137-145) mmol/L Potassium 4.2 (3.5-5.1) mmol/L Chloride 106 (98-107) mmol/L Carbon Dioxide 22 (22-30) mmol/L Anion Gap 8 mmol/L BUN 12 (7-17) mg/dL Creatinine 0.94 (0.52-1.04) mg/dL Est GFR (CKD-EPI)AfAm 83 (>60 ml/min/1.73 sqM) Est GFR (CKD-EPI)NonAf 72 (>60 ml/min/1.73 sqM) Glucose 107 H (74-99) mg/dL Calcium 9.5 (8.4-10.2) mg/dL Magnesium 1.9 (1.6-2.3) mg/dL Total Bilirubin 0.3 (0.2-1.3) mg/dL AST 20 (14-36) U/L ALT 16 (4-34) U/L Alkaline Phosphatase 80 (38-126) U/L Troponin I (0.000-0.034) ng/mL Total Protein 6.7 (6.3-8.2) g/dL Albumin 3.6 (3.5-5.0) g/dL 03/23/20 Range/Units 19:30 WBC (3.8-10.6) k/uL RBC (3.80-5.40) m/uL Hgb (11.4-16.0) gm/dL Hct (34.0-46.0) % MCV (80.0-100.0) fL MCH (25.0-35.0) pg MCHC (31.0-37.0) g/dL RDW (11.5-15.5) % Plt Count (150-450) k/uL Neutrophils % % Lymphocytes % % Monocytes % % Eosinophils % % Basophils % % Neutrophils # (1.3-7.7) k/uL Lymphocytes # (1.0-4.8) k/uL Monocytes # (0-1.0) k/uL Eosinophils # (0-0.7) k/uL Basophils # (0-0.2) k/uL PT (9.0-12.0) sec INR (<1.2) APTT (22.0-30.0) sec Sodium (137-145) mmol/L Potassium (3.5-5.1) mmol/L Chloride (98-107) mmol/L Carbon Dioxide (22-30) mmol/L Anion Gap mmol/L BUN (7-17) mg/dL Creatinine (0.52-1.04) mg/dL Est GFR (CKD-EPI)AfAm (>60 ml/min/1.73 sqM) Est GFR (CKD-EPI)NonAf (>60 ml/min/1.73 sqM) Glucose (74-99) mg/dL Calcium (8.4-10.2) mg/dL Magnesium (1.6-2.3) mg/dL Total Bilirubin (0.2-1.3) mg/dL AST (14-36) U/L ALT (4-34) U/L Alkaline Phosphatase (38-126) U/L Troponin I <0.012 (0.000-0.034) ng/mL Total Protein (6.3-8.2) g/dL Albumin (3.5-5.0) g/dL Critical Care Time Critical Care Time: Yes Total Critical Care Time: 35 Disposition Clinical Impression: Unstable angina pectoris, SVT (supraventricular tachycardia) Disposition: ADMITTED IP TO THIS [facility] Condition: Stable Is patient prescribed a controlled substance at d/c from ED?: No Referrals: Maurilio Stover MD [Primary Care Provider] - 1-2 days Decision to Admit Reason: Admit from EC Decision Date: 03/23/20 Decision Time: 20:28
[2020-03-23 19:47] LABS: Albumin 3.6 g/dL (3.5-5.0); Calcium 9.5 mg/dL (8.4-10.2); Magnesium 1.9 mg/dL (1.6-2.3); Potassium 4.2 mmol/L (3.5-5.1); Total Bilirubin 0.3 mg/dL (0.2-1.3); Total Protein 6.7 g/dL (6.3-8.2)
[2020-03-23 19:55] LABS: INR 0.9 (<1.2); Partial Thromboplastin Time 24.2 sec (22.0-30.0); Prothrombin Time 9.4 sec (9.0-12.0)
[2020-03-23] MEDS ORDERED: HEPARIN SODIUM,PORCINE 5,000 UNIT/ML 1 ML VIAL IV PRN (20:13)
[2020-03-23] MEDS ORDERED: HEPARIN SODIUM,PORCINE 5,000 UNIT/ML 1 ML VIAL IV ONE (20:13)
[2020-03-23] MEDS ORDERED: HEPARIN SOD,PORK IN 0.45% NACL 25,000 UNIT in 0.45% NACL 1 250ML.BAG IV SCH (20:15)
[2020-03-23] MEDS ORDERED: ACETAMINOPHEN TAB 325 MG TAB PO PRN (20:25)
[2020-03-23] MEDS ORDERED: NALOXONE 0.4 MG/ML 1 ML VIAL IV PRN (20:25)
--- NOTE | 2020-03-23 20:30 | XR ---
EXAMINATION TYPE: XR chest 1V portable DATE OF EXAM: 03/23/2020 COMPARISON: NONE HISTORY: Sudden onset chest pain into back and neck. TECHNIQUE: Single AP portable frontal upright view of the chest is obtained. FINDINGS: There is no focal air space opacity, pleural effusion, or pneumothorax seen. The cardiac silhouette size is mildly enlarged. The osseous structures are intact. Overlying EKG leads are pres ent. IMPRESSION: Mild cardiomegaly without acute pulmonary process.
[2020-03-24 03:22] LABS: Basophils # (A) 0.1 k/uL (0-0.2); Basophils % (A) 1 %; Eosinophils # (A) 0.5 k/uL (0-0.7); Eosinophils % (A) 5 %; HCT 43.8 % (34.0-46.0); HGB 13.5 gm/dL (11.4-16.0); Lymphocytes % (A) 32 %; MCH 30.1 pg (25.0-35.0); MCHC 30.8 g/dL (31.0-37.0); MCV 97.6 fL (80.0-100.0); Mean Platelet Volume 7.6; Monocytes # (A) 0.5 k/uL (0-1.0); Monocytes % (A) 5 %; Neutrophils # (A) 5.2 k/uL (1.3-7.7); Neutrophils % (A) 55 %; Platelet Count 243 k/uL (150-450); RBC 4.49 m/uL (3.80-5.40); WBC 9.4 k/uL (3.8-10.6)
[2020-03-24] MEDS ORDERED: PANTOPRAZOLE 40 MG TABLET PO PRN (08:04)
[2020-03-24] MEDS ORDERED: METOPROLOL SUCCINATE (ER) 25 MG TAB.ER.24H PO SCH ×2 (09:00)
--- NOTE | 2020-03-24 10:41 | CONS ---
TONEY Miller is a 49-year-old lady with no significant past medical history who presented to hospital with intermittent episodes of palpitations that have been going on for the last 5 days. She has had these palpitations in the past, also. The first time she had palpitations, it started at work. She stated that she was standing at work, talking to people and suddenly had sustained palpitations. It was associated with some shortness of breath and dizziness. This resolved and she has had subsequent episodes of palpitations and last night that she had run of sustained palpitations for years. Last night she had sustained palpitations associated with some shortness of breath, also had some jaw discomfort due to which she came to the ER, was found to be in SVT with a heart rate of 167 beats per minute. Received adenosine following which she converted to sinus rhythm. At the time of my evaluation this morning, she appears comfortable at rest and is free of symptoms. She does not have chest pain, difficulty in breathing or sustained palpitations. EKG shows sinus rhythm with nonspecific ST-T wave changes. Three sets of cardiac enzymes are negative. I believe patient's symptoms are related to SVT. It is also possible she has an underlying obstructive lesion in her coronaries and the SVT has caused chest pain secondary to supply-demand mismatch. I talked to patient about her treatment options including heart catheterization and stress testing. Understanding risks, benefits, she wished to have a stress test. If that is abnormal, she will go to cardiac catheterization. I talked to her about her options for SVT management including referral to the EP and ablation. Understanding risks, benefits. She will start up at a beta blockers, see how her symptoms evolve, then consider other options. If her stress test looks good, she can be discharged home and she will follow up with me in my office on Tuesday and will have an outpatient event monitor. PAST MEDICAL HISTORY: Negative for hypertension, diabetes, dyslipidemia. MEDICATIONS: She is on Prilosec. FAMILY HISTORY: Negative for premature coronary artery disease. SOCIAL HISTORY: Negative for current smoking, EtOH abuse, or drug abuse. 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 REVIEW OF SYSTEMS: HEENT: Unremarkable. CARDIAC: As described above. RESPIRATORY: Negative. GI: Negative. GENITOURINARY: Negative. ALLERGY/IMMUNOLOGY: Negative. SKIN: Negative. MUSCULOSKELETAL: Negative. ENDOCRINE: Negative. DERM: Negative. CONSTITUTIONAL: Negative. ONCOLOGICAL: Negative. SINGER SONGWRITER: Negative. Rest of the system review is not relevant. PHYSICAL EXAMINATION: On exam, patient is comfortable at rest. Vital signs are stable. There is no jugular venous distention. Carotid upstroke is normal. There is no bruit. Chest exam reveals good air entry bilaterally. Heart exam reveals first and second heart sounds. No gallop. No murmur. No rub. Abdomen is soft, nontender. Exam of extremities did not reveal any edema. Peripheral pulses are felt. SINGER SONGWRITER exam did not reveal focal neurological deficits. LABS: Show that hemoglobin is 13.5, platelet count is 243, potassium is 4.2, creatinine is 0.9. AST, ALT are within normal limits. ASSESSMENT: 1. Precordial chest pain. 2. Paroxysmal SVT. PLAN: I will obtain a stress echo. I will start the patient on Toprol-XL. Hopefully home later today at followup with me on Tuesday. WINSTON / IJN: [id number] /
--- NOTE | 2020-03-24 12:56 | ECHOS ---
STRESS ECHOCARDIOGRAM INDICATIONS: Chest pain. MEDICATIONS: Omeprazole. BASELINE HEART RATE: 78 BASELINE BLOOD PRESSURE: 124/68 MAXIMUM HEART RATE: 149 MAXIMUM BLOOD PRESSURE: 189/67 85% MPHR: 145 100% MPHR: 172 METS: 7.9 MAXIMUM STAGE REACHED: 3 TOTAL EXERCISE TIME: 6:30 CLINICAL INFORMATION: Baseline EKG revealed normal sinus rhythm without significant ST changes. Without significant ST-T changes. Patient walked on a standard [place] protocol for 6-1/2 minutes and achieved a maximal heart rate of 149 beats per minute which is more than 85% of predicted maximal. She developed fatigue and shortness of breath, but did not have angina or arrhythmia. EKG revealed some artifact, but no significant ST-segment changes were noted. There was some artifact on the stress images at peak. However, this is a negative stress test with limited exercise capacity. Baseline echo images revealed normal wall motion and wall thickening of all segments. At peak exercise there was good augmentation of left and wall motion wall thickening of all segments. Echo contrast was administered to optimize the quality of images. FINAL IMPRESSION: 1. By EKG criteria, this is a negative stress test with limited exercise capacity. 2. Normal stress echocardiogram. Quality of images was somewhat suboptimal. MMODL / IJN: [id number] /
[2020-03-24 13:17] VITALS: RESP 16; TEMP 98
[2020-03-24 13:18] VITALS: BP 119/86; PULSE 86
--- NOTE | 2020-03-24 17:17 | P.HPIM ---
History of Present Illness H&P Date: 03/24/20 Chief Complaint: Chest pain 41-year-old female reported emergency room on 03/23/2020 at approximately 1900 with complaints of chest pain and jaw pain. Symptoms had b egun approximately an hour prior to arrival and also may note that she felt quite dizzy. She has no known history of coronary artery disease and no diabetes. Initial set of vital signs temperature of 98.7, pulse rate of 154, respiratory rate 20, blood pressure 138/110 with a pulse ox of 99%. Serial troponins were completed and were found to be negative. Initial blood work WBC of 13, hemoglobin 14.5, hematocrit 44.4, platelet 267. Chemistry revealed a sodium of 136, potassium 4.2, chloride 106, when necessary 12, creatinine of 0.94, GFR of 72 for non-, magnesium 1.9, AST of 20 and ELT of 16. She has past medical history of GERD\reflux. Past surgical history appendectomy, cholecystectomy, tubal ligation, uterine ablation, and D&C. She also is known to be a former smoker. Stress echo was found to be negative with limited exercise. capacity. Chest x-ray showed mild cardiomegaly without acute pulmonary process. Review of Systems Constitutional: Reports as per HPI Ears, nose, mouth and throat: Reports as per HPI Cardiovascular: Reports chest pain Respiratory: Reports as per HPI Gastrointestinal: Reports as per HPI Genitourinary: Reports as per HPI Musculoskeletal: Reports as per HPI Integumentary: Reports as per HPI Neurological: Reports as per HPI Psychiatric: Reports as per HPI Endocrine: Reports as per HPI Hematologic/Lymphatic: Reports as per HPI Allergic/Immunologic: Reports as per HPI Past Medical History Past Medical History: GERD/Reflux, Pneumonia Additional Past Medical History / Comment(s): Had PNA in 2019 History of Any Multi-Drug Resistant Organisms: None Reported Past Surgical History: Appendectomy, Cholecystectomy, Tubal Ligation, Uterine Ablation Additional Past Surgical History / Comment(s): D & C, Past Anesthesia/Blood Transfusion Reactions: No Reported Reaction Past Psychological History: No Psychological Hx Reported Smoking Status: Former smoker Past Alcohol Use History: Occasional Additional Past Alcohol Use History / Comment(s): QUIT SMOKING 2014 Past Drug Use History: None Reported - Past Family History Mother Family Medical History: No Reported History Medications and Allergies Home Medications Medication Instructions Recorded Confirmed Type Omeprazole [PriLOSEC] 20 mg PO DAILY PRN 04/04/17 03/23/20 History Allergies Allergy/AdvReac Type Severity Reaction Status Date / Time Penicillins Allergy Unknown Verified 03/23/20 19:13 Childhood Physical Exam Vitals: Vital Signs Temp Pulse Pulse Resp BP BP Pulse Ox 03/24/20 16:00 16 03/24/20 12:00 86 16 119/86 98 03/24/20 08:00 98 F 77 16 137/88 98 03/24/20 04:00 85 18 132/60 97 03/24/20 00:00 98.0 F 97 18 135/74 97 03/23/20 21:35 98.1 F 101 H 19 137/85 98 03/23/20 21:23 98.7 F 111 H 16 147/81 98 03/23/20 20:10 104 H 16 157/94 98 03/23/20 19:50 105 H 16 144/89 100 03/23/20 19:38 112 H 03/23/20 19:35 112 H 18 140/93 100 03/23/20 19:33 133 H 18 98 03/23/20 19:31 184 H 18 139/114 98 03/23/20 19:27 161 H 03/23/20 19:10 98.7 F 154 H 20 138/110 99 Intake and Output 03/24/20 03/24/20 03/24/20 06:59 14:59 22:59 Intake Total 67.5 240 Output Total 350 Balance 67.5 -110 Intake: Intake, IV Titration 67.5 Amount Heparin Sod,Pork in 0.45% 67.5 NaCl 25,000 unit In 0.45 % NaCl 1 250ml.bag @ 8. 165 UNITS/KG/HR 10 mls/hr IV .Q24H [facility] Rx#: [id number] Oral 240 Output: Urine 350 Other: Voiding Method Toilet Toilet Toilet # Voids 2 Weight 130.3 kg 130.3 kg GENERAL: Well-appearing, well-nourished and in no acute distress. HEAD: Atraumatic, normocephalic. EYES: Pupils equal round and reactive to light, extraocular movements intact, sclera anicteric, conjunctiva are normal. ENT:nares patent, oropharynx clear without exudates. Moist mucous membranes. NECK: Normal range of motion, supple without lymphadenopathy or JVD, no thyromegaly LUNGS: Breath sounds clear to auscultation bilaterally and equal. No wheezes rales or rhonchi. HEART: Regular rate and rhythm without murmurs, rubs or gallops.S1S2 Normal ABDOMEN: Soft, nontender, normoactive bowel sounds. No guarding, no rebound. No masses appreciated. EXTREMITIES: Normal range of motion, no pitting or edema. No clubbing or cyanosis. NEUROLOGICAL: Cranial nerves II through XII grossly intact. Normal speech, normal gait. PSYCH: Normal mood, normal affect. SKIN: Warm, Dry, normal turgor, no rashes or lesions noted. Results CBC & Chem 7: 03/24/20 02:47 03/23/20 19:30 Labs: Abnormal Lab Results - Last 24 Hours (Table) 03/23/20 03/23/20 03/24/20 Range/Units 19:30 19:30 02:47 WBC 13.0 H (3.8-10.6) k/uL MCHC (31.0-37.0) g/dL APTT 39.9 H (22.0-30.0) sec Sodium 136 L (137-145) mmol/L Glucose 107 H (74-99) mg/dL 03/24/20 Range/Units 02:47 WBC (3.8-10.6) k/uL MCHC 30.8 L (31.0-37.0) g/dL APTT (22.0-30.0) sec Sodium (137-145) mmol/L Glucose (74-99) mg/dL Thrombosis Risk Factor Assmnt - Choose All That Apply Any of the Below Risk Factors Present?: Yes Each Factor Represents 1 point: Age 41-60 years, Obesity (BMI >25) Thrombosis Risk Factor Assessment Total Risk Factor Score: 2 Thrombosis Risk Factor Assessment Level: Low Risk
--- NOTE | 2020-03-24 17:20 | P.DS ---
Providers Date of admission: 03/23/20 20:26 Expected date of discharge: 03/24/20 Attending physician: Maurilio Stover Consults: 03/23/20 20:25 Consult Physician Routine Consulting Provider: Alexis Thomson Consult Reason/Comments: SVT UA Do you want consulting provider notified?: Yes Primary care physician: Maurilio Stover Patient Condition at Discharge: Stable Plan - Discharge Summary Discharge Rx Participant: Yes New Discharge Prescriptions: No Action Omeprazole [PriLOSEC] 20 mg PO DAILY PRN PRN Reason: Gi Upset Discharge Medication List Omeprazole [PriLOSEC] 20 mg PO DAILY PRN 04/04/17 [History] Follow up Appointment(s)/Referral(s): Maurilio Stover MD [Primary Care Provider] - 1-2 days Guy Moraes MD [STAFF PHYSICIAN] - 03/28/20 Activity/Diet/Wound Care/Special Instructions: Regular diet Activity as tolerated Discharge Disposition: HOME SELF-CARE
== END 2020-03-24 18:45 | disposition home or self-care (01) ==
LOC: EC 19:08 → INTOOBSV 20:26 → 3SCARD 20:26 → UNDODISIN 03-24 18:45
PROVIDERS: ADMIT Family Medicine; ATTEND Family Medicine
DX: R07.2 Precordial pain (principal); R68.84 Jaw pain; I47.1 Supraventricular tachycardia; K21.9 Gastro-esophageal reflux disease without esophagitis; Z79.899 Other long term (current) drug therapy; Z88.0 Allergy status to penicillin; Z90.49 Acquired absence of other specified parts of digestive tract; Z87.891 Personal history of nicotine dependence; Z87.01 Personal history of pneumonia (recurrent); E66.9 Obesity, unspecified; Z68.42 Body mass index [BMI] 45.0-49.9, adult; Z98.51 Tubal ligation status; Z98.890 Other specified postprocedural states
CPT/HCPCS: 96366 ×2; 96376; 96361; 96365; 96375; 99291; 36415; 93005; 93351; 80053; 83735; 84484 ×2; 85025 ×2; 85610; 85730 ×2; 71045; G0378 ×2; J1644 ×2; J0153; Q9950